=== PATIENT | female | born 1995 | race Caucasian/White ===

== ENCOUNTER 2018-12-12 09:27 | Emergency (ER) | payer BC ==
[~2018-12-12] VITALS: Ht 170.2 cm; Wt 69.4 kg
[2018-12-12 09:38] VITALS: Ht 170.2 cm; Wt 69.4 kg
[2018-12-12 10:58] VITALS: BP 125/71
== END 2018-12-12 10:58 | disposition home or self-care (01) ==
LOC: ED 09:27
DX: H57.12 Ocular pain, left eye (principal)
CPT/HCPCS: J7040; V2632